=== PATIENT | female | born 1995 | race Native Hawaiian/Other Pacific Islander ===

== ENCOUNTER → 2018-07-23 08:54 | Outpatient (CLI) | payer OTHER | END | disposition home or self-care (01) | LOC: AMB 08:54 | DX: Z03.89 Encounter for observation for other suspected diseases and conditions ruled out (principal); V49.9XXA Car occupant (driver) (passenger) injured in unspecified traffic accident, initial encounter; Y93.89 Activity, other specified; Y92.89 Other specified places as the place of occurrence of the external cause ==